=== PATIENT | male | born 1940 | race Asian ===

== ENCOUNTER 2018-09-17 00:03 | Inpatient (IN) | payer MEDICARE, MEDICAID ==
--- NOTE | 2018-09-17 00:46 | ED Physician Chart ---
ED Chief Complaint/HPI - Patient Information Date Seen:: 09/17/18 Time Seen:: 00:41 Chief Complaint:: hematuria History of Present Illness:: 69yr old male with hematuria in the holliday Allergies:: Allergies Allergy/AdvReac Type Severity Reaction Status Date / Time No Known Allergies Allergy Verified 09/17/18 00:29 Vitals:: Vital Signs - 8 hr 09/17/18 00:03 Temp 98.3 F HR 96 RR 19 BP 94/65 O2 Sat % 99 ED Review of Systems - Review of Systems General/Constitutional: No fever Head: No headache Eyes: No loss of vision ENT: No earache Neck: No neck pain Cardio Vascular: No chest pain Pulmonary: No SOB GI: No vomiting Endocrine: No polyuria Psychiatric: No prior psych history ED Past Medical History - Past Medical History Past Medical History: Other (bph malignant neoplasm anemia hyperlipedemia gerd resp failure) ED Physical Exam - Physical Examination General/Constitutional: Alert Head: Atraumatic Eyes: Lids, conjuctiva normal Skin: No rash (skin abrasions visible) Neck: Nontender, No JVD Respiratory: Nl effort/Exclusion Cardio Vascular: RRR GI: No tenderness/rebounding/guarding Extremities: Full ROM, normal strength in all extremities ED Assessment - Assessment General Assessment: hematuria ED Septic Shock - . Is Septic Shock (SBP<90, OR Lactate>4 mmol\L) present?: No - <6hrs of presentation: Vital Signs: Vital Signs - 8 hr 09/17/18 00:03 Temp 98.3 F HR 96 RR 19 BP 94/65 O2 Sat % 99 ED Reassessment (Disposition) - Diagnosis Diagnosis:: hematuria in the holliday hx psa and prostate cancer
[2018-09-17 00:53] LABS: URINE SOURCE FOLEY PORT
[2018-09-17 01:00] LABS: MEAN CELL VOLUME 92.1 fl (80-99); MEAN CORPUSCULAR HEMOGLOBIN 30.5 pg (27.0-31.0); MEAN CORPUSCULAR HGB CONC 33.2 pg (28.0-36.0); PLATELET COUNT 388 Th/cmm (150-400); RED BLOOD COUNT 2.53 Mil/cmm (3.80-5.80); RED CELL DISTRIBUTION WIDTH 17.9 % (11.5-20.0)
[2018-09-17 01:04] LABS: URINE BILIRUBIN NEGATIVE (NEGATIVE); URINE BLOOD LARGE (NEGATIVE); URINE GLUCOSE (UA) 100 mg/dL (NEGATIVE); URINE KETONE 15 mg/dL (NEGATIVE); URINE LEUKOCYTE ESTERASE MODERATE (NEGATIVE); URINE MICROSCOPIC INDICATED? YES; URINE NITRATE POSITIVE (NEGATIVE); URINE PROTEIN >=300 mg/dL (NEGATIVE)
[2018-09-17 01:05] LABS: WHITE BLOOD COUNT 19.2 Th/cmm (4.8-10.8)
[2018-09-17 01:06] LABS: HEMATOCRIT 23.3 % (41.0-60); HEMOGLOBIN 7.7 gm/dL (12-16)
[2018-09-17 01:11] LABS: ALBUMIN 2.5 gm/dL (4.2-5.5); ALKALINE PHOSPHATASE 39 U/L (34-104); ANION GAP 17.1 (7.0-16.0); BILIRUBIN,TOTAL 0.4 mg/dL (0.3-1.0); BUN - UREA NITROGEN 48 mg/dL (7-25); CALCIUM SERUM 7.4 mg/dL (8.6-10.3); CARBON DIOXIDE 15.2 mEq/L (21.0-31.0); CHLORIDE 110 mEq/L (98-107); CREATININE - SERUM 3.9 mg/dL (0.7-1.3); GLUCOSE 151 mg/dL (70-105); POTASSIUM SERUM 5.3 mEq/L (3.5-5.1); SGOT 20 U/L (13-39); SGPT/ALT 9 U/L (7-52); SODIUM SERUM 137 mEq/L (136-145)
[2018-09-17 01:25] LABS: URINE CLARITY BLOODY (CLEAR); URINE COLOR RED
[2018-09-17 01:26] LABS: URINE RBC >100 /hpf (0-5)
[2018-09-17] MEDS ORDERED: Sodium Chloride 0.9% 1,000 ML IV ONE ×2 (01:26→22:00)
[2018-09-17 01:27] LABS: URINE BACTERIA FEW /hpf (NONE SEEN); URINE EPITHELIAL CELLS RARE /lpf (FEW)
[2018-09-17] MEDS ORDERED: cefTRIAXone 1 GM in Sodium Chloride 0.9% 50 ML IV ONE ×2 (01:41→01:44)
[2018-09-17] MEDS ORDERED: cefTRIAXone 2 GM in Sodium Chloride 0.9% 100 ML IV ONE (02:08)
[2018-09-17] MEDS ORDERED: Sodium Chloride 0.9% 1,000 ML IV SCH ×2 (03:39→16:30)
[2018-09-17 04:05] LABS: BAND NEUTROPHILE 1 % (0-10); LYMPHOCYTE 9 % (20-50); MONOCYTE 4 % (2-10); NEUTROPHILS 86 % (40-80)
[2018-09-17 04:06] LABS: PLATELET ESTIMATE INCREASED PLATELETS (NORMAL); PLATELET MORPHOLOGY NORMAL (NORMAL)
[2018-09-17 05:50] LABS: RED BLOOD COUNT 1.96 Mil/cmm (3.80-5.80); WHITE BLOOD COUNT 19.8 Th/cmm (4.8-10.8)
[2018-09-17 05:51] LABS: HEMOGLOBIN 6.2 gm/dL (12-16)
[2018-09-17 05:52] LABS: HEMATOCRIT 17.9 % (41.0-60); MEAN CELL VOLUME 91.4 fl (80-99); MEAN CORPUSCULAR HEMOGLOBIN 31.5 pg (27.0-31.0); MEAN CORPUSCULAR HGB CONC 34.4 pg (28.0-36.0); PLATELET COUNT 352 Th/cmm (150-400)
[2018-09-17 06:39] LABS: BAND NEUTROPHILE 1 % (0-10); LYMPHOCYTE 5 % (20-50); MONOCYTE 5 % (2-10); NEUTROPHILS 89 % (40-80)
[2018-09-17 06:40] LABS: HYPOCHROMIA 1+
[2018-09-17 07:46] VITALS: BP 108/69
[2018-09-17 07:54] LABS: ALBUMIN 2.3 gm/dL (4.2-5.5); ALKALINE PHOSPHATASE 35 U/L (34-104); ANION GAP 18.1 (7.0-16.0); BILIRUBIN,TOTAL 0.3 mg/dL (0.3-1.0); BUN - UREA NITROGEN 49 mg/dL (7-25); CALCIUM SERUM 6.9 mg/dL (8.6-10.3); CARBON DIOXIDE 11.9 mEq/L (21.0-31.0); CHLORIDE 112 mEq/L (98-107); GLUCOSE 151 mg/dL (70-105); SGOT 20 U/L (13-39); SGPT/ALT 8 U/L (7-52); SODIUM SERUM 137 mEq/L (136-145); TOTAL PROTEIN,SERUM 4.6 gm/dL (6.0-8.3)
[2018-09-17 08:01] LABS: CREATININE - SERUM 4.1 mg/dL (0.7-1.3)
[2018-09-17] MEDS: Ciprofloxacin 200mg Premix PB 200 MG/100 ML BAG IV SCH ×2 (09:20→20:34)
[2018-09-17] MEDS ORDERED: Morphine Sulfate 2 mg/mL 1mL Syr IVP PRN (09:31)
[2018-09-17] MEDS ORDERED: HYDROmorphone 1 mg/mL 1mL Syr IVP PRN (15:32)
[2018-09-17] MEDS ORDERED: HYDROmorphone 2 mg/mL 1mL Vial IVP PRN (16:10)
[2018-09-17 16:42] LABS: HEMATOCRIT 30.5 % (41.0-60); HEMOGLOBIN 10.4 gm/dL (12-16)
--- NOTE | 2018-09-17 19:12 | Consultation ---
DATE OF CONSULTATION: 09/17/2018 ATTENDING: Dr. Chel Elizabeth. WOOD MILLING MACHINE HAND: Dr. Carrillo East. REASON FOR CONSULTATION: Worsening kidney function, electrolyte imbalance, and fluid management. HISTORY OF PRESENT ILLNESS: This is a 78-year-old [place] male with past medical history of prostate CA, who came in because of gross hematuria. The patient has a history of prostate CA and underwent chemotherapy. One month prior to admission, he was admitted for gross hematuria. He underwent bladder irrigation, which resolved the hematuria. He was then transferred to [facility] for further care. A few hours prior to admission, he [place] [facility] [place] was then brought to the Emergency Room. CBC done revealed a hemoglobin/hematocrit of 7.7/23.3 then this came down to 6.2/17.1. He did receive 3 units of packed RBC. He was also seen by Urology. He was started on bladder irrigation. PAST MEDICAL HISTORY: 1. Prostate CA. 2. Essential hypertension. 3. Status post cerebrovascular accident. CURRENT MEDICATIONS: He is currently on ceftriaxone, ciprofloxacin, hydromorphone, pantoprazole, ondansetron. ALLERGIES: No known drug allergies. SOCIAL AND FAMILY HISTORY: I was not able to obtain from the patient because of the pain that he experiences and so he was not able to respond appropriately. REVIEW OF SYSTEMS: Again, I was not able to decipher directly from the patient because of the same reason. PHYSICAL EXAMINATION: GENERAL: The patient is awake, somewhat agitated, likely due to underlying pain. VITAL SIGNS: Blood pressure is 122/80, pulse 107, temperature 98.7 degrees. SKIN: Good turgor, warm, no rash, no jaundice appreciated. HEENT: Head normocephalic, atraumatic. Eyes: Extraocular muscles intact. Pupils equal, round, reactive to light and accommodates. Anicteric sclerae. Pale conjunctivae. Nose, midline nasal septum. Mouth: Moist mucosa, adequate dentition. NECK: Supple, no adenopathy, no thyromegaly, no bruits. Trachea palpated in the midline. CHEST AND CARDIOVASCULAR: S1, S2. No rub, murmur nor gallop appreciated. Point of maximal impulse fifth intercostal space, left midclavicular line. No abdominal or femoral bruits appreciated. LUNGS: Equal expansion. No use of accessory muscles. No supraclavicular retractions. Decreased breath sounds, clear to auscultation without any wheeze. ABDOMEN: Mildly globular, soft. Positive for bowel sounds. No bruits either diastolic or systolic. There is no palpable bladder, no tenderness. RECTAL: The patient refused. GENITOURINARY: Normal appearing male genitalia with indwelling Van catheter draining pinkish urine. MUSCULOSKELETAL: No effusions present in his joints with adequate range of motion. EXTREMITIES: No evidence of edema, cyanosis nor clubbing with palpable, femoral, popliteal, and dorsalis pedis pulses. NEUROLOGIC: The patient is awake, verbal; however, he is somewhat agitated as he was not able to follow my neuro commands, so I was not able to pursue further my neuro exam. LABORATORY DATA: Labs did reveal white count 19.8, hemoglobin 6.2, hematocrit 17.9, platelets 352. Sodium 137, potassium 5, chloride 112, CO2 of 11.9, BUN 49, creatinine 4.1, glucose 151. Lactic acid 2.38, calcium 6.9, albumin 2.3. IMPRESSION: 1. Acute kidney injury. The patient may have developed acute outlet obstruction secondary to accumulation of clots, which will prevent urine from draining. 2. Severe anemia secondary to gross hematuria. 3. Gross hematuria secondary to prostate cancer. 4. Essential hypertension. 5. Status post cerebrovascular accident. 6. Anion gap metabolic acidosis with non-gap acidosis. PLAN: 1. Continue with IV fluids. 2. Continue with bladder irrigation. 3. Urinalysis. 4. Urine spot sodium, eosinophils, and creatinine. 5. Urine microalbumin to creatinine ratio. 6. Urinalysis. 7. Follow up kidney as well as bladder ultrasound. Thank you, Dr. Elizabeth, for this consult. We will follow the patient closely with you. JOB# [id number]
--- NOTE | 2018-09-17 19:16 | Consultation ---
DATE OF CONSULTATION: UROLOGY CONSULTATION CHIEF COMPLAINT: The patient admitted for gross hematuria coming from a group home. HISTORY OF PRESENT ILLNESS: This is a 78-year-old gentleman who I saw at [facility] about a month ago for similar problems and did a cystoscopy with fulguration. 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 This history of prostate cancer remains somewhat unclear as the family members keep going back and forth about the details. From [place], he had gone to a group home and now brought here because of recurrent hematuria. Since then, the Van has been irrigated and the urine is clearing up quite well. ALLERGIES: None. REVIEW OF SYSTEMS: He had no fever or weight loss reported. There is no headache or seizures noted. No chest pain, coughing, or shortness of breath. No abdominal pain, vomiting, or diarrhea. No skin rash or joint swelling. PAST MEDICAL HISTORY: Significant for prostate cancer most likely and he also has hyperlipidemia and a history of GERD. HOME MEDICATIONS: Tylenol, simethicone, Lomotil, Colace, Lipitor, calcium phosphate, Proscar, and Lasix. PAST SURGICAL HISTORY: Unavailable as the patient is unable to tell me and there are no family members around at this time. PHYSICAL EXAMINATION: GENERAL: Is in the ICU for assumed septic episode and elevated lactic acid, white count was also elevated. He had come with the Van catheter that was probably from the [facility]. He is awake and alert, but he does not communicate much. VITAL SIGNS: Temperature is 98.3, heart rate 78, and blood pressure 114/52. He has not had a fever since admission. HEAD AND NECK: Normocephalic. Trachea central. Pupils equal and reactive. No jaundice. Thyroid and lymph nodes not palpable. Carotid bruit absent. CHEST: Symmetrical. LUNGS: Clear. No rales or rhonchi. HEART: Sounds normal in sinus rhythm, no murmur. ABDOMEN: Soft, nontender, no organomegaly, mass, or hernia. Bladder is nontender and nondistended. Van catheter is now draining very light pink urine after the irrigation. EXTREMITIES: No edema or lymphadenopathy. NEUROLOGIC: Nonfocal. Moves all 4 limbs. LABORATORY DATA: White count 19.8, hemoglobin 6.2, and platelets 352. Sodium 137, potassium 5.0, chloride 112, CO2 11.9, BUN 49, and creatinine 4.1. Lactic acid 2.3. Liver functions unremarkable. Urinalysis with a lot of red cells, only few white cells, few bacteria. IMPRESSION: 1. Recurrent gross hematuria, probably from prostate cancer versus radiation cystitis. The patient has received cancer therapy so far, but again we need to get the details about his hormonal treatment. He is on finasteride, which helps a little bit further cancer treatment, but not very well documented. If the hematuria does not subside, one may have to again subject him to another cystoscopy and fulguration. 2. Profound anemia from the bleeding and chronic disease. He is getting the third unit of blood transfusion now. 3. Hyperlipidemia, which is stable. 4. History of gastroesophageal reflux disease, asymptomatic at this point and well controlled. PLAN: Change the catheter to a new one to offset any possibility of infection in this catheter. We will continue manual and continuous irrigations. We will review records from [place] to verify these findings and also to get the update on his cancer status if he has somebody following him on the outside. Thank you for the referral. JOB# [id number]
[2018-09-17] MEDS ORDERED: Albuterol/Ipratropium Neb 3 ML AERS HHN PRN (19:32)
[2018-09-17] MEDS ORDERED: Albuterol/Ipratropium Neb 3 ML AERS HHN ONE (19:42)
[2018-09-17] MEDS ORDERED: Albumin 25% 25gm/100mL 25 GM/100 ML BTL IV ONE (22:00)
--- NOTE | 2018-09-17 23:43 | Consultation ---
DATE OF CONSULTATION: 09/17/2018 GASTROENTEROLOGY CONSULTATION REQUESTING PHYSICIAN: Dr. Kenny Elizabeth. REASON FOR CONSULTATION: Abdominal pain. HISTORY OF PRESENT ILLNESS: This is a 78-year-old male with a history of metastatic prostate cancer, presenting with gross hematuria. He has undergone chemotherapy previously. We were asked to see him because he had abdominal pain. He is currently confused and having some respiratory insufficiency. He is otherwise a poor historian. There has been no witnessed nausea, vomiting, diarrhea or constipation. There has been no witnessed GI bleeding. PAST MEDICAL HISTORY: Notable also for old stroke, hypertension and prostate cancer. MEDICATIONS: Here are Cipro, Dilaudid, Zofran, Protonix and IV fluids. ALLERGIES: No known drug allergies. SOCIAL HISTORY: No recent tobacco, alcohol or drugs. FAMILY HISTORY: Noncontributory. REVIEW OF SYSTEMS: A comprehensive 12-point review of systems conducted, but it is only positive for the signs and symptoms present in history of present illness. PHYSICAL EXAMINATION: VITAL SIGNS: Temperature 98.7, blood pressure is 138/75, pulse of 107, respirations 26, O2 sat is 95%. GENERAL: The patient is a well-developed, chronically ill-appearing male who appears in mild respiratory distress, having some tachypnea. He is confused. CARDIOVASCULAR: Regular rate and rhythm. LUNGS: With rhonchi at the bases. ABDOMEN: Soft, nontender, nondistended, normoactive bowel sounds. EXTREMITIES: No clubbing, cyanosis or edema. RECTAL: Deferred. LABORATORY DATA AND IMAGING: WBC is 19.8, hemoglobin initially was 6.2, but after transfusion came up to 10.4, platelet count of 352. Sodium is 137, creatinine is 4.1. Liver labs are normal. Alkaline phosphatase is normal. Albumin 2.3. IMPRESSION: 1. Vague abdominal pain, rule out gastritis, peptic ulcer disease, gastroesophageal reflux disease, ileus, constipation, etc. 2. Metastatic prostate cancer. 3. Hematuria. 4. Blood loss anemia, status post transfusion. 5. Respiratory insufficiency. 6. Old stroke. RECOMMENDATIONS: 1. Check KUB. 2. Check abdominal ultrasound. 3. May need CT imaging of abdomen and pelvis. 4. Breathing treatments and further care as per hospitalist and Pulmonology. 5. Monitor hemoglobin, transfuse as necessary. 6. Protonix. 7. Further recommendations following above workup. 8. Check amylase and lipase. Thank you, Dr. Kenny Elizabeth for involving us in the care of your patient. If you have any further questions, please call us. JOB# [id number]
[2018-09-17] MEDS ORDERED: Diphenoxylate/Atropine 2.5mg Tab PO PRN (23:49)
[2018-09-17] MEDS ORDERED: Hydrocodone/APAP 5mg/325mg Tab PO PRN (23:49)
[2018-09-17] MEDS ORDERED: Maalox 30 mL Cup PO PRN (23:49)
[2018-09-18] MEDS ORDERED: Albumin 25% 25gm/100mL 25 GM/100 ML BTL IV ONE
[2018-09-18] MEDS ORDERED: Sodium Bicarbonate 8.4% 50mEq PFS IVP ONE ×3 (00:11→03:30)
[2018-09-18] MEDS ORDERED: Albumin 5% 12.5gm/250mL 12.5 GM/250 ML BTL IV ONE ×3 (00:13→05:02)
--- NOTE | 2018-09-18 00:41 | History & Physical ---
ADMIT DATE: 09/17/2018 CHIEF COMPLAINT: Hematuria. HISTORY OF PRESENT ILLNESS: The patient is a 78-year-old male with a past medical history of prostate cancer, hyperlipidemia, GERD, presented to the ER for hematuria. On initial evaluation, the patient's temperature was 98.3 degrees Fahrenheit and blood pressure was on lower side 59/40. The patient was admitted to ICU. The patient's creatinine was also elevated. So, Dr. East was called for the renal consultation. As the patient is a hematuria patient, Dr. Baker, Urology consultation was also called. Hemoglobin is 7.7, 2 PRBCs was ordered as the patient's hemoglobin dropped to 6.2, so total of 3 PRBCs given. The patient's blood pressure was maintained, but the patient's blood pressure dropped again to 60s. The patient's IV fluid bolus was given and Cardiology consultation was also called. As the patient has anemia, GI consultation was also called. At the time of the evaluation, the patient had received ____. Code blue was called. At this time, the code blue was running as well as protocol was followed by ER team. PAST MEDICAL HISTORY: Includes BPH, prostate CA, recent radiation cystitis, anemia, hyperlipidemia, GERD, respiratory failure. ALLERGIES: NKDA. MEDICATIONS: See medication reconciliation sheet. REVIEW OF SYSTEMS: The patient is unable to give any history at this time. The patient has hematuria. PHYSICAL EXAMINATION: VITAL SIGNS: Currently shows temperature is 96.8, pulse is 93, respirations 15, blood pressure 108/51. GENERAL: The patient is comfortable lying in bed, not in acute distress. HEENT: Head is atraumatic. Oral cavity, moist pink tongue. Eyes: Pallor is present, no icterus. PERRLA, EOMI. NECK: Supple, no JVD, no bruit. Trachea is midline. CHEST: Bilateral breath sounds. Crackles present. HEART: S1, S2 within normal limits. Regular rhythm. No murmur, no gallop. ABDOMEN: Soft, nontender, nondistended. Bowel sounds present. EXTREMITIES: No cyanosis, no clubbing, no edema. NEUROLOGICAL: Unresponsive. LABORATORY DATA: Current lab shows WBC count 19,800, hemoglobin 10.4, hematocrit 30.5, platelets are 352,000, neutrophils 89%. Sodium is 137, potassium 5, chloride 104, bicarbonate is 11.9, BUN is 49, creatinine is 4.1, glucose is 151. Lactic acid 2.38. Urinalysis showed large blood, positive nitrite, leukocyte esterase moderate. RBC more than 100. WBC 6.6-10. IMPRESSION: 1. Cardiopulmonary arrest. 2. Hematuria secondary to radiation cystitis versus cerebrovascular accident. 3. Prostate cancer. 4. Hyperlipidemia. 5. Gastroesophageal reflux disease. RECOMMENDATIONS: Continue home medication. Follow as per the farm consultant. Code blue was running. Depending on the patient's condition, we will take the decision. Consultations were called. Hematology, Dr. Armstrong, GI consultation, Dr. Au. Urology consultation, Dr. Baker and Renal consult, Dr. East. The patient's condition is critical. Prognosis is very poor. ADDENDUM: Tonight, the patient was coded after VFib. He went into asystole. Code blue was called. ACLS protocol was followed. The patient was found to be very acidotic, so with 2 ampules of bicarbonate was given and IV fluid was changed to half normal saline with 2 ampules of bicarbonate and 1 liter of fluid at 60 mL per hour. The patient's pH improved minimally. Bicarbonate was 10 and potassium was 7, but came down to 5.8. Kayexalate was ordered. The patient's blood pressure dropped, so the patient was started on Levophed also. I have discussed with the family multiple times and informed of the patient's condition and they understood the condition of the patient very well. They know the patient's condition is very critical. Meanwhile, multiple labs were ordered. Chest x-ray showed a proper position of the ET tube, but little higher, but in acceptable range. After the successful code blue, the patient went back again to VFib. ACLS protocol was followed again. The patient was shocked 3 times. Please review the code blue record for further details. The patient did normalize. As per the staff, the patient has prostate CA with metastasis, stage 4 cancer. The patient's condition is critical. With the help of translator interpreter, code status was described. The patient's family wanted him to be a full code. Currently, the patient intubated orally on the ventilator support with FiO2 100%, on ventilator support. Levophed was started. As bicarbonate was again low, so 2 ampules of bicarbonate ordered again. JOB# [id number] [email or web address]
[2018-09-18 00:51] LABS: ALLEN TEST Positive
[2018-09-18 00:55] LABS: pH 6.82 (7.35-7.45)
[2018-09-18 00:57] LABS: ALLEN TEST Positive
[2018-09-18] MEDS ORDERED: Sodium Bicarbonate 8.4% 100 MEQ in Sodium Chloride 0.45% 900 ML IV SCH (01:00)
[2018-09-18 01:10] LABS: RED BLOOD COUNT 2.67 Mil/cmm (3.80-5.80); WHITE BLOOD COUNT 20.3 Th/cmm (4.8-10.8)
[2018-09-18 01:11] LABS: HEMATOCRIT 24.4 % (41.0-60); HEMOGLOBIN 8.1 gm/dL (12-16); MEAN CELL VOLUME 91.3 fl (80-99); MEAN CORPUSCULAR HEMOGLOBIN 30.4 pg (27.0-31.0); MEAN CORPUSCULAR HGB CONC 33.3 pg (28.0-36.0); MEAN PLATELET VOLUME 6.4 fl; PLATELET COUNT 229 Th/cmm (150-400); RED CELL DISTRIBUTION WIDTH 18.1 % (11.5-20.0)
[2018-09-18 01:12] LABS: % EOSINOPHILS 0.4 % (0.0-5.0); % LYMPHOCYTES 13.7 % (20.0-50.0); % MONOCYTES 0.6 % (2.0-10.0); % NEUTROPHILS 85.1 % (40.0-80.0)
[2018-09-18] MEDS ORDERED: Norepinephrine 4 mg/4mL Vial IV ONE ×2 (02:06→07:34)
[2018-09-18 02:34] LABS: SODIUM SERUM 131 mEq/L (136-145)
[2018-09-18 02:36] LABS: CHLORIDE 100 mEq/L (98-107); POTASSIUM SERUM 6.2 mEq/L (3.5-5.1)
[2018-09-18 02:37] LABS: ANION GAP 27.1 (7.0-16.0); CARBON DIOXIDE 10.1 mEq/L (21.0-31.0)
[2018-09-18 02:38] LABS: BUN - UREA NITROGEN 53 mg/dL (7-25)
[2018-09-18 02:39] LABS: CREATININE - SERUM 4.4 mg/dL (0.7-1.3)
[2018-09-18 02:41] LABS: ALB/GLOB RATIO 1.7 (1.0-1.8); BILIRUBIN,TOTAL 1.2 mg/dL (0.3-1.0); CALCIUM SERUM 5.8 mg/dL (8.6-10.3); TOTAL PROTEIN,SERUM 4.8 gm/dL (6.0-8.3)
[2018-09-18 02:42] LABS: ALKALINE PHOSPHATASE 75 U/L (34-104); SGOT 513 U/L (13-39); SGPT/ALT 355 U/L (7-52)
[2018-09-18] MEDS ORDERED: Sodium Bicarbonate 8.4% 50mEq Vial ONE (03:34)
[2018-09-18] MEDS ORDERED: Piperacillin Sodium/Tazobact 2.25 gm Vial IV ONE (03:58)
[2018-09-18 05:53] LABS: WHITE BLOOD COUNT 17.3 Th/cmm (4.8-10.8)
[2018-09-18 05:54] LABS: HEMATOCRIT 22.6 % (41.0-60); MEAN CELL VOLUME 91.5 fl (80-99); MEAN CORPUSCULAR HGB CONC 33.9 pg (28.0-36.0); RED BLOOD COUNT 2.47 Mil/cmm (3.80-5.80); RED CELL DISTRIBUTION WIDTH 17.9 % (11.5-20.0)
[2018-09-18 05:55] LABS: MEAN PLATELET VOLUME 6.5 fl; PLATELET COUNT 208 Th/cmm (150-400)
[2018-09-18 06:20] LABS: HEMOGLOBIN 7.7 gm/dL (12-16)
[2018-09-18 06:21] LABS: LYMPHOCYTE 0 % (20-50)
--- NOTE | 2018-09-18 06:52 | General Progress Note ---
Subjective - Review of Systems Service Date: 09/17/18 Events since last encounter: ER CONSULTATION: REASON FOR CONSULTATION : CODE BLUE TIME IT WAS STARTED WAS 1155 HRS I WAS CALLED TO ICU TO INTUBATE THIS PATIENT BECAUSE OF HIS POOR SATURATIONS. WHILE PREPARING TO INTUBATE THE PATIENT, HEART STOPPED. THE PATIENT WAS INTUBATED WITH A 7.5 ET TUBE AND PLACED ON THE VENTILATOR WITH SETTING OF AN FIO OF 100%, TV OF 500, RATE OF 12 AND A PEEP OF 5. DURING THE CODE THE PATIENT WAS GIVEN MULTIPLE DOSES OF EPI AND SHOCKED MULTIPLE TIME BEFORE HE REGAINED HIS SINUS HEART BEAT AND THE PULSE WAS CHECKED WITH A DOPPLER. PLEASE SEE THE DETAILS OF THE CODE FLOW SHEET. Objective - Results Result Diagrams: 09/18/18 05:33 09/18/18 00:42 Recent Labs: Laboratory Last Values WBC 17.3 Th/cmm (4.8-10.8) H 09/18/18 05:33 RBC 2.47 Mil/cmm (3.80-5.80) L 09/18/18 05:33 Hgb 7.7 gm/dL (12-16) L* 09/18/18 05:33 Hct 22.6 % (41.0-60) L 09/18/18 05:33 MCV 91.5 fl (80-99) 09/18/18 05:33 MCH 31.0 pg (27.0-31.0) 09/18/18 05:33 MCHC Differential 33.9 pg (28.0-36.0) 09/18/18 05:33 RDW 17.9 % (11.5-20.0) 09/18/18 05:33 Plt Count 208 Th/cmm (150-400) 09/18/18 05:33 MPV 6.5 fl 09/18/18 05:33 Add Manual Diff FEE CLERK 09/18/18 05:33 Neutrophils % 85.1 % (40.0-80.0) H 09/18/18 00:42 Band Neutrophils % 1 % (0-10) 09/17/18 04:50 Lymphocytes % 13.7 % (20.0-50.0) L 09/18/18 00:42 Monocytes % 0.6 % (2.0-10.0) L 09/18/18 00:42 Eosinophils % 0.4 % (0.0-5.0) 09/18/18 00:42 Neutrophils (Manual) Not Reportable 09/18/18 05:33 Lymphocytes 0 % (20-50) L 09/18/18 05:33 Monocytes 5 % (2-10) 09/17/18 04:50 Hypochromia 1+ 09/17/18 04:50 Platelet Estimate INCREASED PLATELETS (NORMAL) 09/17/18 00:44 Platelet Morphology NORMAL (NORMAL) 09/17/18 00:44 RBC Morph Micro Appear NORMAL (NORMAL) 09/17/18 00:44 Specimen Source Arterial 09/18/18 00:21 Sample Site RIGHT FEMORAL 09/18/18 00:21 pH 6.82 (7.35-7.45) L* 09/18/18 00:21 pCO2 58.0 mmHg (35.0-45.0) H* 09/18/18 00:21 pO2 133.0 mmHg (80.0-100.0) H 09/18/18 00:21 HCO3 5.5 mEq/L (20.0-26.0) L 09/18/18 00:21 Base Excess -24.9 mEq/L (-3.0-3.0) L 09/18/18 00:21 O2 Saturation 95.0 % (92.0-100.0) 09/18/18 00:21 Abdulkadir Test Positive 09/18/18 00:21 Vent Rate 12 09/18/18 00:21 Inspired O2 100 09/18/18 00:21 Tidal Volume 500 09/18/18 00:21 PEEP 5 09/18/18 00:21 Pressure (ins/psv/peep) NA 09/18/18 00:21 Critical Value SC 09/18/18 00:21 Sodium 131 mEq/L (136-145) L 09/18/18 00:42 Potassium 6.2 mEq/L (3.5-5.1) H* 09/18/18 00:42 Chloride 100 mEq/L (98-107) 09/18/18 00:42 Carbon Dioxide 10.1 mEq/L (21.0-31.0) L 09/18/18 00:42 Anion Gap 27.1 (7.0-16.0) H 09/18/18 00:42 BUN 53 mg/dL (7-25) H 09/18/18 00:42 Creatinine 4.4 mg/dL (0.7-1.3) H* 09/18/18 00:42 Est GFR ( Amer) TNP 09/18/18 00:42 Est GFR (Non-Af Amer) TNP 09/18/18 00:42 BUN/Creatinine Ratio 12.0 09/18/18 00:42 Glucose 151 mg/dL (70-105) H 09/17/18 04:54 Whole Bld Lactic Acid 11.75 mmol/L (0.60-1.99) H* 09/18/18 01:57 Calcium 5.8 mg/dL (8.6-10.3) L* 09/18/18 00:42 Total Bilirubin 1.2 mg/dL (0.3-1.0) H 09/18/18 00:42 AST 513 U/L (13-39) H 09/18/18 00:42 ALT 355 U/L (7-52) H 09/18/18 00:42 Alkaline Phosphatase 75 U/L (34-104) 09/18/18 00:42 Total Protein 4.8 gm/dL (6.0-8.3) L 09/18/18 00:42 Albumin 3.0 gm/dL (4.2-5.5) L 09/18/18 00:42 Globulin 1.8 gm/dL 09/18/18 00:42 Albumin/Globulin Ratio 1.7 (1.0-1.8) 09/18/18 00:42 Urine Source [place] 09/17/18 00:44 Urine Color RED 09/17/18 00:44 Urine Clarity BLOODY (CLEAR) 09/17/18 00:44 Urine pH 7.0 (4.6 - 8.0) 09/17/18 00:44 Ur Specific [place] 1.020 (1.005-1.030) 09/17/18 00:44 Urine Protein >=300 mg/dL (NEGATIVE) 09/17/18 00:44 Urine Glucose (UA) 100 mg/dL (NEGATIVE) H 09/17/18 00:44 Urine Ketones 15 mg/dL (NEGATIVE) H 09/17/18 00:44 Urine Blood LARGE (NEGATIVE) H 09/17/18 00:44 Urine Nitrate POSITIVE (NEGATIVE) H 09/17/18 00:44 Urine Bilirubin NEGATIVE (NEGATIVE) 09/17/18 00:44 Urine Urobilinogen 4.0 E.U./dL (0.2 - 1.0) H 09/17/18 00:44 Ur Leukocyte Esterase MODERATE (NEGATIVE) H 09/17/18 00:44 Urine RBC >100 /hpf (0-5) H 09/17/18 00:44 Urine WBC 6-10 /hpf (0-5) 09/17/18 00:44 Ur Epithelial Cells RARE /lpf (FEW) 09/17/18 00:44 Urine Bacteria FEW /hpf (NONE SEEN) 09/17/18 00:44 Blood Type O POSITIVE 09/17/18 02:08 Antibody Screen NEGATIVE 09/17/18 02:08 Crossmatch See Detail 09/17/18 02:08 - Physical Exam Vitals and I&O: Vital Signs Temp 96.8 F 09/17/18 20:00 Pulse 93 09/18/18 05:36 Resp 13 09/17/18 23:45 BP 107/63 09/17/18 23:30 Pulse Ox 98 09/18/18 05:36 Intake & Output 09/17/18 09/17/18 09/18/18 06:59 18:59 06:59 Weight (lbs) 59.421 kg Other: Weight Source Estimated Active Medications: Current Medications Acetaminophen (Tylenol) 650 mg PO Q4HR PRN PRN Reason: FEVR >110.4F Stop: 11/16/18 23:56 Acetaminophen/Hydrocodone Bitart ([place] 5mg/325mg) 1 tab PO Q4HR PRN PRN Reason: Pain (Moderate) Stop: 11/16/18 23:48 Al Hydrox/Mg Hydrox/Simethicone (Maalox) 30 ml PO Q6HR PRN PRN Reason: GI DISTRESS Stop: 11/16/18 23:48 Albuterol/Ipratropium (Duoneb Neb) 3 ml HHN Q4H PRN PRN Reason: congestion Stop: 11/16/18 19:31 Last Admin: 09/17/18 19:52 Dose: 3 ml Atorvastatin Calcium (Lipitor) 10 mg PO DAILY [facility]; Protocol Stop: 11/17/18 08:59 Chlorhexidine Gluconate (Peridex) 15 ml MM 0800,1999 [facility] Stop: 11/17/18 07:59 Diphenoxylate HCl/Atropine (Lomotil) 1 tab PO Q6HR PRN PRN Reason: Loose Stools Stop: 11/16/18 23:48 Docusate Sodium (Colace) 100 mg PO Q12HR PRN PRN Reason: Constipation Stop: 11/16/18 23:48 Finasteride (Proscar) 5 mg PO DAILY [facility]; Protocol Stop: 11/17/18 08:59 Furosemide (Lasix) 20 mg PO DAILY [facility] Stop: 11/17/18 08:59 Hydromorphone HCl (Dilaudid) 2 mg IVP Q4HR PRN PRN Reason: Pain (Severe) Stop: 11/16/18 16:09 Last Admin: 09/17/18 16:20 Dose: 2 mg Ciprofloxacin (Cipro 200mg Premix Pb) 200 mg in 100 mls @ 100 mls/hr IV Q12HR [facility] Stop: 11/16/18 08:59 Last Infusion: 09/17/18 21:34 Dose: Infused Norepinephrine Bitartrate 4 mg (/ Dextrose) 254 mls @ 30.48 mls/hr IV PRN PRN; Protocol PRN Reason: BP MAINTENANCE (PER PROTOCOL) Stop: 11/16/18 21:43 Last Titration: 09/18/18 06:37 Dose: 18 mcg/min, 68.58 mls/hr Piperacillin Sod/Tazobactam (Sod 2.25 gm/ Sodium Chloride) 50 mls @ 100 mls/hr IV Q8HR [facility] Stop: 11/17/18 04:59 Last Infusion: 09/18/18 04:38 Dose: Infused Sodium Bicarbonate 150 meq/ (Dextrose) 1,000 mls @ 125 mls/hr IV .Q8H [facility] Stop: 11/17/18 03:59 Last Infusion: 09/18/18 06:00 Dose: 125 mls/hr Albumin Human (Albutein 5%) 12.5 gm in 250 mls @ 62.5 mls/hr IV X1 ONE Stop: 09/18/18 09:01 Last Admin: 09/18/18 05:38 Dose: 62.5 mls/hr Miscellaneous (Calcium Phosphate Dibas/Vit D3 [Risacal-D Tablet]) 1 tab PO BID [facility] Stop: 11/17/18 08:59 Miscellaneous (Vancomycin Iv Per Pharmacy) 1 ea [facility] PRN [facility] Stop: 11/17/18 00:44 Ondansetron HCl (Zofran) 4 mg IV Q4H PRN PRN Reason: Nausea / Vomiting Stop: 11/16/18 15:32 Last Admin: 09/17/18 15:45 Dose: 4 mg Pantoprazole Sodium (Protonix) 40 mg IVP QDAC [facility] Stop: 11/16/18 07:29 Last Admin: 09/17/18 07:43 Dose: 40 mg
[2018-09-18] MEDS ORDERED: Chlorhexidine Gluconate 0.12% 15mL Mouthwash MM SCH (08:00)
[2018-09-18 08:26] LABS: ALB/GLOB RATIO 1.7 (1.0-1.8); ALBUMIN 2.9 gm/dL (4.2-5.5); ALKALINE PHOSPHATASE 61 U/L (34-104); AMYLASE SERUM 1877 U/L (29-103); BILIRUBIN,TOTAL 1.7 mg/dL (0.3-1.0); BUN - UREA NITROGEN 53 mg/dL (7-25); CHLORIDE 101 mEq/L (98-107); LIPASE 221 U/L (11-82); MAGNESIUM 2.5 mg/dL (1.9-2.7); SODIUM SERUM 134 mEq/L (136-145); TOTAL PROTEIN,SERUM 4.6 gm/dL (6.0-8.3)
[2018-09-18 08:46] LABS: SGOT 1559 U/L (13-39); SGPT/ALT 607 U/L (7-52)
[2018-09-18 09:00] LABS: ANION GAP 32.2 (7.0-16.0); CARBON DIOXIDE 7.8 mEq/L (21.0-31.0)
[2018-09-18] MEDS ORDERED: CALCIUM PHOSPHATE DIBAS PO SCH (09:00)
[2018-09-18] MEDS ORDERED: Atorvastatin Calcium 10 MG TAB PO SCH (09:00)
[2018-09-18] MEDS ORDERED: VIT D3 PO SCH (09:00)
[2018-09-18 09:01] LABS: CREATININE - SERUM 4.2 mg/dL (0.7-1.3)
[2018-09-18 09:02] LABS: CALCIUM SERUM 5.9 mg/dL (8.6-10.3)
[2018-09-18 09:03] LABS: GLUCOSE 49 mg/dL (70-105)
[2018-09-18 09:06] LABS: PHOSPHOROUS 10.1 mg/dL (2.5-5.0)
[2018-09-18] MEDS: Ciprofloxacin 200mg Premix PB 200 MG/100 ML BAG IV SCH (09:42)
--- NOTE | 2018-09-18 09:46 | Diagnostic Imaging Report ---
Chest and abdomen 2 views HISTORY: Abdominal pain. COMPARISON: Chest x-ray the same day FINDINGS: An endotracheal tube is noted with tip 4.5 cm above the víctor. Diffuse pulmonary infiltrates are noted. Heart size is normal. Assessment for effusion is limited on this exam. Percutaneous feeding tube is noted. Diffuse distended loops of bowel noted with moderate stool. Tubing material is seen along the pelvis. Degenerative changes of the spine are noted with scoliosis. IMPRESSION: Endotracheal tube with tip 4.5 cm above the Víctor. Diffuse bilateral pulmonary infiltrates. Diffuse distended loops of bowel which may be due to an ileus versus less likely distal low-grade obstructive process. Follow-up recommended. Tubing material within the pelvis possibly a Van catheter or rectal tube. Please correlate clinically. There also appears to be a percutaneous feeding tube. Please correlate clinically.
--- NOTE | 2018-09-18 09:53 | Diagnostic Imaging Report ---
CHEST X-RAY: AP view INDICATION: NG tube placement COMPARISON: Chest x-ray earlier the same day at 12:41 AM FINDINGS: ET tube is stable. NG tube is in place with tip in the stomach. Diffuse pulmonary infiltrates are noted. Gas distended loops of bowel are noted. IMPRESSION: NG tube within the stomach Persistent extensive bilateral pulmonary infiltrates.
--- NOTE | 2018-09-18 09:53 | Diagnostic Imaging Report ---
CHEST X-RAY: AP view INDICATION: Intubation COMPARISON: 09/18/2018 FINDINGS: ET tube is seen with tip 5 cm above the Radha. Diffuse bony infiltrates are seen with small effusions. Heart size is normal. IMPRESSION: ET tube with tip 5 cm above the Radha Diffuse pulmonary infiltrates and small effusions.
[2018-09-19 14:11] LABS: GLUCOSE 61 mg/dL (70-105)
--- NOTE | 2018-10-13 14:04 | Discharge Summary ---
DATE OF DISCHARGE: 09/18/2018 CHIEF COMPLAINT: Hematuria. HISTORY OF PRESENT ILLNESS AND HOSPITAL COURSE. The patient was a 78-year-old male with a past medical history of prostate cancer, hyperlipidemia, GERD, presented to the ER for hematuria. The patient presented to [facility] few days ago and discharged back to [facility]. On initial evaluation, the patient's temperature 98.2 degrees Fahrenheit, blood pressure was on lower side 59/40. He was admitted to the ICU. The patient's creatinine was also elevated, so Dr. East was also called. The patient had developed hematuria, so Dr. Baker, Urology consultation was also called. Hemoglobin was 7.7 and 2 units of PRBC ordered; however, hemoglobin dropped to 6.2, so a total of 3 units of PRBC transfused. The patient's blood pressure was maintained, but it dropped again to 60s. IV fluid boluses were given. Cardiology consultation was called. The patient had anemia and GI consult was called. The patient had ventricular fibrillation and asystole, so shiva more was called. The patient was resuscitated. However, the patient's condition remained critical. Next day, on 09/18/2018 morning family had decided to make him DNR. However, his condition never improved and ultimately he on 09/18/2018. As per documentation, the patient was pronounced by ER physician, Dr. Colon at 10:05 a.m. on 09/18/2018. The patient's family was informed. DISCHARGE DISPOSITION: . DISCHARGE DIAGNOSES: 1. Hematuria. 2. Prostate cancer. 3. Acute renal failure. 4. Metabolic acidosis. 5. Cardiopulmonary arrest. 6. Myocardial infarction. 7. Hyperlipidemia. 8. Anemia. 9. Gastroesophageal reflux disease. 10. Respiratory failure, on ventilator. JOB# [id number]
== END 2018-09-18 10:05 | disposition expired | DRG 722 ==
LOC: ER 00:03 → ICU 02:15
PROVIDERS: ADMIT Internal Medicine Infectious Disease; ATTEND Internal Medicine Infectious Disease
PROC: 30233N1 Transfusion of Nonautologous Red Blood Cells into Peripheral Vein, Percutaneous Approach (ICD-10-PCS; principal; 2018-09-17)
PROC: 0BH17EZ Insertion of Endotracheal Airway into Trachea, Via Natural or Artificial Opening (ICD-10-PCS; 2018-09-18)
PROC: 5A1935Z Respiratory Ventilation, Less than 24 Consecutive Hours (ICD-10-PCS; 2018-09-18)
PROC: 5A12012 Performance of Cardiac Output, Single, Manual (ICD-10-PCS; 2018-09-18)
DX: C61 Malignant neoplasm of prostate (principal); J96.90 Respiratory failure, unspecified, unspecified whether with hypoxia or hypercapnia; N17.9 Acute kidney failure, unspecified; E87.2 Acidosis; C79.9 Secondary malignant neoplasm of unspecified site; I46.9 Cardiac arrest, cause unspecified; I49.01 Ventricular fibrillation; N40.0 Benign prostatic hyperplasia without lower urinary tract symptoms; E78.5 Hyperlipidemia, unspecified; K21.9 Gastro-esophageal reflux disease without esophagitis; I10 Essential (primary) hypertension; D63.8 Anemia in other chronic diseases classified elsewhere; R31.0 Gross hematuria; E11.9 Type 2 diabetes mellitus without complications; I25.10 Atherosclerotic heart disease of native coronary artery without angina pectoris; Z66 Do not resuscitate; Z86.73 Personal history of transient ischemic attack (TIA), and cerebral infarction without residual deficits
CPT/HCPCS: 36415-UA; 36600-90; 71045-TC; 74000-TC; 80053-TC; 81001-TC; 82150-TC; 82803-TC; 83605; 83690-TC; 83735-TC; 84100-TC; 84153-90; 85007-TC; 85014-TC; 85018-TC; 85025-TC; 85384-TC; 85730-TC; 86850-TC; 86900-TC; 86901-TC; 86922-TC; 87070; 87086-90; 90799; 92950; 93005; 94002; 94003; 94640; A4217; C9113; J0696; J0744; J1170; J1885; J1940; J2270; J2405; J2543; J3370; J7030; J7070; P9016; P9045; P9046; X6452; X7704; Z7610